=== PATIENT | female | born 1950 | race Two or more races ===

== ENCOUNTER → 2023-11-18 16:39 | Outpatient (REF) | payer OTHER, SELFPAY | LOC: WDC 16:39 | PROVIDERS: ATTENDING PHYSICIAN Family Medicine | DX: R10.11 Right upper quadrant pain (principal); Z12.31 Encounter for screening mammogram for malignant neoplasm of breast | CPT/HCPCS: 76700; 77063; 77067 ==

== ENCOUNTER → 2024-05-13 10:31 | Outpatient (REF) | payer OTHER, SELFPAY | LOC: RAD 10:31 | PROVIDERS: ATTENDING PHYSICIAN Family Medicine | DX: M81.0 Age-related osteoporosis without current pathological fracture (principal) | CPT/HCPCS: 77080 ==

== ENCOUNTER → 2025-01-18 11:10 | Outpatient (REF) | payer OTHER, SELFPAY | LOC: RAD 11:10 | PROVIDERS: ATTENDING PHYSICIAN Nurse Practitioner Adult Health; FAMILY PHYSICIAN Internal Medicine Geriatric Medicine | DX: M54.50 Low back pain, unspecified (principal); M54.6 Pain in thoracic spine | CPT/HCPCS: 72072; 72110 ==

== ENCOUNTER → 2025-07-20 11:35 | Outpatient (REF) | payer OTHER, SELFPAY | LOC: RAD 11:35 | PROVIDERS: ATTENDING PHYSICIAN Nurse Practitioner Adult Health; FAMILY PHYSICIAN Internal Medicine Geriatric Medicine | DX: M81.0 Age-related osteoporosis without current pathological fracture (principal); M54.9 Dorsalgia, unspecified; Z87.81 Personal history of (healed) traumatic fracture | CPT/HCPCS: 72072 ==

== ENCOUNTER → 2025-08-21 09:36 | Outpatient (REF) | payer OTHER, SELFPAY | LOC: PAVMRI 09:36 | PROVIDERS: ATTENDING PHYSICIAN Orthopaedic Surgery; FAMILY PHYSICIAN Internal Medicine Geriatric Medicine | DX: M54.6 Pain in thoracic spine (principal) | CPT/HCPCS: 72146 ==